=== PATIENT | female | born 1960 | race Caucasian/White ===

== ENCOUNTER 2018-01-21 10:45 | Outpatient (CLI) | payer MEDICARE, BC | END 2018-01-21 10:46 | disposition home or self-care (01) | LOC: BICMAMMO 10:45 | PROVIDERS: ATTEND Family Medicine | DX: Z12.31 Encounter for screening mammogram for malignant neoplasm of breast (principal) | CPT/HCPCS: 77063; 77067 ==

== ENCOUNTER 2018-06-06 09:27 | Outpatient (CLI) | payer MEDICARE, BC ==
--- NOTE | 2018-06-06 10:50 | RAD ---
FRONTAL AND LATERAL IMAGING OF THE LUMBAR SPINE: Date: 06-06-18 Comparison: None. History: Back pain, dorsalgia. FINDINGS: There is extensive atherosclerotic calcification of the abdominal aorta. Age indeterminate anterior wedge compression fracture noted involving the T11 vertebral body with fay roximately 25% loss of vertebral body height anteriorly. Lumbar vertebral body height and alignment a ppears normal. There is facet hypertrophy at L4-5 and L5-S1. IMPRESSION: 1. Age indeterminate mild anterior wedge compression fracture at T11. 2. Lower lumbar spine degenerative change. 3. Extensive atherosclerotic calcification of the abdominal aorta. POS: OFF
--- NOTE | 2018-06-06 11:17 | RAD ---
LEFT ANKLE THREE VIEWS: History: Left ankle pain following an injury from a fall. FINDINGS: Arterial vascular calcifications are noted in the lower leg. Soft tissue swelling is noted of the ank le and over the dorsal aspect of the foot, somewhat greater laterally. There is increased density in the region of the ankle joint which could represent some joint effusion. IMPRESSION: Soft tissue swelling with possible associated joint effusion but without acute fracture or dislocatio n. If patient's symptoms worsen or do not resolve over time, consider non-emergent follow up MRI for fur ther assessment. Prominent vascular calcifications. Mild degenerative changes of the ankle joint. POS: JEAN PIERRE
--- NOTE | 2018-06-06 11:33 | RAD ---
THREE VIEWS THORACIC SPINE: Date: 06-06-18 History: Back pain, trauma. FINDINGS: There is atherosclerotic calcification of the aortic arch. There is mild prominence of the right paratracheal shadow and right hilar shadow. There is also incre ased density within the left perihilar and infrahilar region. Findings may be on the basis of adenopa thy. Multilevel midthoracic spine degenerative changes are noted with disc space narrowing and anterior os teophyte formation. Age indeterminate mild anterior wedge compression fracture of T11 noted with 25% loss of vertebral body height anteriorly. IMPRESSION: 1. Age indeterminate, probably acute anterior wedge compression fracture of T11 with 25% loss of vert ebral body height anteriorly. 2. Abnormal soft tissue density in the mediastinum for which CT examination is advised. 3. Madison Morrison, ordering physician's electrician's assistant, made aware at 10:15 a.m. 06-06-18. Code CR. POS: OFF
== END 2018-06-06 09:28 | disposition home or self-care (01) ==
LOC: BICRAD 09:27
PROVIDERS: ATTEND Physician Assistant Medical
DX: M25.572 Pain in left ankle and joints of left foot (principal); M54.9 Dorsalgia, unspecified; S22.080A Wedge compression fracture of T11-T12 vertebra, initial encounter for closed fracture; M47.816 Spondylosis without myelopathy or radiculopathy, lumbar region; M79.89 Other specified soft tissue disorders; M25.472 Effusion, left ankle; M19.072 Primary osteoarthritis, left ankle and foot; I70.0 Atherosclerosis of aorta
CPT/HCPCS: 72072; 72100

== ENCOUNTER 2018-06-10 14:38 | Outpatient (CLI) | payer MEDICARE, BC ==
--- NOTE | 2018-06-10 16:00 | CT ---
CT CHEST WITHOUT CONTRAST 06/10/18 PROVIDED CLINICAL HISTORY: Abnormal thoracic spine radiograph. FINDINGS: Vascular calcifications including coronary calcium demonstrated. The heart, pericardium and great ve ssels are suboptimally evaluated in the absence of IV contrast but demonstrate an unremarkable unenha nced CT appearance. There is no evidence for thoracic lymph node enlargement. The lungs are free of significant opacity. Pleural parenchymal scarring is seen at the right lung bas e. The airway appears patent and of normal caliber. The visualized portions of the upper abdomen demonstrate fatty infiltration of the liver. The osseous structures demonstrate no concerning lytic or blastic lesions. Superior end plate compression deform ity involving T11 is demonstrated. Please see concurrently dictated CT thoracic spine for further de tails. IMPRESSION: 1. No evidence for an acute process. No CT correlate is demonstrated for the findings described on prior radiographs, presumably artifactual on that study. 2. Vascular calcification including coronary calcium. 3. Fatty infiltration of the liver. 4. Superior end plate compression deformity involving T11. Please see concurrently dictated CT t horacic spine for further details. POS: OFF
--- NOTE | 2018-06-10 16:16 | CT ---
THORACIC SPINE CT NONCONTRAST: Date: 06/10/18 CLINICAL HISTORY: Dorsalgia, backache, history of pain. Compression fracture. FINDINGS: There is a mild anterior wedge compression fracture of T11. Minimal inferior end plate irregularity o f T10 with minimal height loss is present. There is multilevel end plate degenerative change, end twan te irregularity, and Schmorl's node formation throughout the visualized thoracic spine, as well as th e incidentally imaged upper lumbar spine. No significant subluxation is demonstrated. There is a mini mal degree of retropulsion of bone at the T10-11 level related to the above described compression def ormities with moderate osseous compromise of the central canal at this level. Osteophyte formation at T11-12 also results in moderate osseous narrowing of the central canal. There is incidental note of diffuse vascular disease. There is incidental note of a markedly diminutive left kidney. IMPRESSION: Mild anterior wedge compression of T11. Minimal inferior end plate irregularity and associated height loss of T10. Slight retropulsion of bone is present with moderate osseous narrowing of the neural fo ramina. Additional details are described above. POS: JEAN PIERRE
== END 2018-06-10 14:39 | disposition home or self-care (01) ==
LOC: BICCT 14:38
PROVIDERS: ATTEND Physician Assistant Medical
DX: M48.54XA Collapsed vertebra, not elsewhere classified, thoracic region, initial encounter for fracture (principal); R93.89 Abnormal findings on diagnostic imaging of other specified body structures; M47.814 Spondylosis without myelopathy or radiculopathy, thoracic region; M48.04 Spinal stenosis, thoracic region; M25.78 Osteophyte, vertebrae; M89.9 Disorder of bone, unspecified
CPT/HCPCS: 71250; 72128

== ENCOUNTER 2018-07-18 10:41 | Outpatient (CLI) | payer MEDICARE, BC ==
--- NOTE | 2018-07-18 15:54 | MRI ---
MRI THORACIC SPINE WITHOUT IV CONTRAST: INDICATION: History of T11 compression abnormality. COMPARISON: Prior CT of the thorax dated 06/10/2018. TECHNIQUE: Multiplanar, multisequence MR images were obtained of the thoracic spine without contrast. FINDINGS: A T11 and T12 subacute wedge compression abnormality demonstrate no appreciable worsening in loss of height. No new fracture is evident. The spinal cord demonstrates a normal signal intensity and lani iber. There is a small central disk protrusion at T6-T7 without appreciable central canal or neural foramin al narrowing. There is a left paracentral disk protrusion at T8-T9 without appreciable central canal or neural fora debo narrowing. At T10-T11, there is a broad-based disk-osteophyte complex causing mild central canal narrowing and m ild bilateral neural foraminal narrowing. At T11-T12, there is a broad-based disk-osteophyte complex inducing mild central canal narrowing with mild bilateral neural foraminal narrowing. IMPRESSION: 1. Multilevel spondylosis of the thoracic spine. 2. Subacute compression abnormalities of T11 and T12 without further loss of height. 3. Broad-based disk-osteophyte complex at T10-T11 and T11-T12 causing mild central canal narrowing a nd mild bilateral neural foraminal narrowing. 4. Small disk protrusions at T6-T7 and T8-T9 without appreciable central canal or neural foraminal n arrowing. POS: JEAN PIERRE
== END 2018-07-18 10:42 | disposition home or self-care (01) ==
LOC: BICMRI 10:41
PROVIDERS: ATTEND Physical Medicine & Rehabilitation
DX: S22.089D Unspecified fracture of T11-T12 vertebra, subsequent encounter for fracture with routine healing (principal); M47.814 Spondylosis without myelopathy or radiculopathy, thoracic region; M48.04 Spinal stenosis, thoracic region; M51.24 Other intervertebral disc displacement, thoracic region
CPT/HCPCS: 72146

== ENCOUNTER 2018-12-15 10:21 | Emergency (ER) | payer MEDICARE, BC ==
[2018-12-15 10:54] LABS: #Basophils 0.1 thou/uL (0.0-0.2); #Eosinphils 0.2 thou/uL (0.0-0.7); #Lymphocytes 3.8 thou/uL (1.20-3.40); #Monocytes 1.2 thou/uL (0.11-0.59); #Neutrophils 7.6 thou/uL (1.40-6.50); %Basophils 1.1 % (0.0-1.0); %Eosinophils 1.4 % (0.0-10.0); %Lymphocytes 29.3 % (21.0-51.0); %Neutrophils 59.3 % (42.0-75.0); Hemoglobin 14.3 g/dL (12.0-16.0); Mean Corpuscular HGB CONC 34.6 g/dL (32.0-36.0); Mean Corpuscular Hemoglobin 30.3 pg (27.0-31.0); Mean Corpuscular Volume 87.3 fL (78.0-98.0); Mean Platelet Volume 7.1 fL (7.4-10.4); Platelet Count 376 thou/uL (130-400); RBC Distribution Width 11.6 % (11.5-14.5); Red Blood Cell (RBC) Count 4.72 mill/uL (4.20-5.40); White Blood Cell (WBC) Count 12.8 thou/uL (4.8-10.8)
[2018-12-15 11:16] LABS: ALT (SGPT) 28 U/L (8-55); AST (SGOT) 18 U/L (5-34); Albumin 4.6 g/dL (3.5-5.0); Alkaline Phosphatase 78 U/L (40-150); Anion Gap 14 mmol/L (10-20); BUN (Urea Nitrogen) 31 mg/dL (9.8-20.1); Bilirubin, Total 0.5 mg/dL (0.2-1.2); Calc. Creatinine Clearance 0 mL/min (70-130); Calcium 11.3 mg/dL (7.8-10.44); Carbon Dioxide 31 mmol/L (22-29); Chloride 94 mmol/L (98-107); Estimated GFR-MDRD 24; Globulin 3.3 g/dL (2.4-3.5); Glucose 289 mg/dL (70-105); Potassium 4.5 mmol/L (3.5-5.1); Protein, Total 7.9 g/dL (6.0-8.3); Sodium 134 mmol/L (136-145)
[2018-12-15] MEDS ORDERED: Ondansetron PF 4 MG/2 ML Vial ONE (11:52)
[2018-12-15 13:57] LABS: Bilirubin Negative (Negative); Blood, Urine Negative (Negative); Clarity Clear (Clear); Glucose, Urine (Dipstick) Normal (Negative); Leukocyte Negative Leu/uL (Negative); Nitrite Negative (Negative); Protein, Urine (Dipstick) 20 mg/dL (Neg-Trace); Urobilinogen Normal mg/dL (Less than 2)
[2018-12-15 14:35] LABS: Anion Gap 16 mmol/L (10-20); BUN (Urea Nitrogen) 28 mg/dL (9.8-20.1); Calc. Creatinine Clearance 0 mL/min (70-130); Calcium 10.3 mg/dL (7.8-10.44); Carbon Dioxide 26 mmol/L (22-29); Chloride 100 mmol/L (98-107); Estimated GFR-MDRD 28; Glucose 207 mg/dL (70-105); Potassium 4.9 mmol/L (3.5-5.1); Sodium 137 mmol/L (136-145)
[2018-12-15] MEDS ORDERED: Lisinopril 10 MG TAB ONE (14:39)
[2018-12-15] MEDS ORDERED: Acetaminophen 500 MG TAB ONE (14:48)
== END 2018-12-15 15:41 | disposition home or self-care (01) ==
LOC: ERS 10:21
DX: E11.22 Type 2 diabetes mellitus with diabetic chronic kidney disease (principal); I12.9 Hypertensive chronic kidney disease with stage 1 through stage 4 chronic kidney disease, or unspecified chronic kidney disease; N18.9 Chronic kidney disease, unspecified; E86.0 Dehydration; E78.5 Hyperlipidemia, unspecified; F32.9 Major depressive disorder, single episode, unspecified; Z87.891 Personal history of nicotine dependence; Z79.899 Other long term (current) drug therapy
CPT/HCPCS: 36415; 80053; 81003; 82010; 85025; 96361; 96374; J2405

== ENCOUNTER 2019-02-21 12:51 | Outpatient (CLI) | payer MEDICARE, BC ==
--- NOTE | 2019-02-21 14:38 | MMO ---
Bilateral MAMMO Bilat Screen [facility]. CLINICAL HISTORY: Patient is 59 years old and is seen for screening. The patient has no family history of breast cancer. The patient has no personal history of cancer. VIEWS: The views performed were: bilateral craniocaudal with tomosynthesis and bilateral mediolateral oblique with tomosynthesis. FILMS COMPARED: The present examination has been compared to prior imaging studies performed at [facility] on 01/14/2015, 01/16/2016, 01/18/2017 and 01/21/2018. This study has been interpreted with the assistance of computer-aided detection. MAMMOGRAM FINDINGS: There are scattered fibroglandular densities. There are benign appearing and vascular calcifications seen in both breasts. There are no suspicious masses, suspicious calcifications, or new areas of architectural distortion. IMPRESSION: THERE IS NO MAMMOGRAPHIC EVIDENCE OF MALIGNANCY. A ROUTINE FOLLOW-UP MAMMOGRAM IN 1 YEAR IS RECOMMENDED. THE RESULTS OF THIS EXAM WERE SENT TO THE PATIENT. ACR BI-RADS Category 2 - Benign finding MAMMOGRAPHY NOTE: 1. A negative mammogram report should not delay a biopsy if a dominant of clinically suspicious mass is present. 2. Approximately 10% to 15% of breast cancers are not detected by mammography. 3. Adenosis and dense breasts may obscure an underlying neoplasm. Reported by: JONI KIM MD Electonically Signed: [id number]
== END 2019-02-21 12:52 | disposition home or self-care (01) ==
LOC: BICMAMMO 12:51
PROVIDERS: ATTEND Family Medicine
DX: Z12.31 Encounter for screening mammogram for malignant neoplasm of breast (principal)
CPT/HCPCS: 77063; 77067

== ENCOUNTER 2020-03-11 13:35 | Outpatient (CLI) | payer MEDICARE, BC ==
--- NOTE | 2020-03-11 14:03 | MMO ---
Bilateral MAMMO Bilat Screen [facility]. CLINICAL HISTORY: Patient is 60 years old and is seen for screening. The patient has no family history of breast cancer. The patient has no personal history of cancer. VIEWS: The views performed were: bilateral craniocaudal with tomosynthesis and bilateral mediolateral oblique with tomosynthesis. FILMS COMPARED: The present examination has been compared to prior imaging studies performed at [facility] on 01/16/2016, 01/18/2017, 01/21/2018 and 02/21/2019. This study has been interpreted with the assistance of computer-aided detection. MAMMOGRAM FINDINGS: There are scattered fibroglandular densities. There are stable benign appearing calcifications seen in both breasts. There are also vascular calcifications. There are no suspicious masses, suspicious calcifications, or new areas of architectural distortion. IMPRESSION: THERE IS NO MAMMOGRAPHIC EVIDENCE OF MALIGNANCY. A ROUTINE FOLLOW-UP MAMMOGRAM IN 1 YEAR IS RECOMMENDED. THE RESULTS OF THIS EXAM WERE SENT TO THE PATIENT. ACR BI-RADS Category 2 - Benign finding MAMMOGRAPHY NOTE: 1. A negative mammogram report should not delay a biopsy if a dominant of clinically suspicious mass is present. 2. Approximately 10% to 15% of breast cancers are not detected by mammography. 3. Adenosis and dense breasts may obscure an underlying neoplasm. Reported by: DAVID CISNEROS MD Electonically Signed: [id number]
== END 2020-03-11 13:36 | disposition home or self-care (01) ==
LOC: BICMAMMO 13:35
PROVIDERS: ATTEND Family Medicine
DX: Z12.31 Encounter for screening mammogram for malignant neoplasm of breast (principal)
CPT/HCPCS: 77063; 77067

== ENCOUNTER 2020-12-13 09:38 | Outpatient (CLI) | payer MEDICARE, BC | END 2020-12-13 09:39 | disposition home or self-care (01) | LOC: BICMRI 09:38 | PROVIDERS: ATTEND Nurse Practitioner Acute Care | DX: M54.41 Lumbago with sciatica, right side (principal); M48.061 Spinal stenosis, lumbar region without neurogenic claudication; M43.15 Spondylolisthesis, thoracolumbar region | CPT/HCPCS: 72148 ==

== ENCOUNTER 2021-03-25 11:01 | Outpatient (CLI) | payer MEDICARE, BC | END 2021-03-25 11:02 | disposition home or self-care (01) | LOC: BICMAMMO 11:01 | PROVIDERS: ATTEND Family Medicine | DX: Z12.31 Encounter for screening mammogram for malignant neoplasm of breast (principal) | CPT/HCPCS: 77063; 77067 ==

== ENCOUNTER 2021-04-01 14:03 | Outpatient (CLI) | payer MEDICARE, BC | END 2021-04-01 14:04 | disposition home or self-care (01) | LOC: SCSRAD 14:03 | PROVIDERS: ATTEND Psychiatry & Neurology Neurology | DX: G63 Polyneuropathy in diseases classified elsewhere (principal) ==

== ENCOUNTER 2021-04-10 09:18 | Outpatient (CLI) | payer MEDICARE, BC | END 2021-04-10 09:19 | disposition home or self-care (01) | LOC: BICMRI 09:18 | PROVIDERS: ATTEND Anesthesiology Pain Medicine | DX: M76.9 Unspecified enthesopathy, lower limb, excluding foot (principal); M25.451 Effusion, right hip; S73.101A Unspecified sprain of right hip, initial encounter ==

== ENCOUNTER 2021-11-25 14:21 | Outpatient (CLI) | payer MEDICARE, BC | END 2021-11-25 14:22 | disposition home or self-care (01) | LOC: BICRAD 14:21 | PROVIDERS: ATTEND Anesthesiology | DX: M25.562 Pain in left knee (principal); M25.561 Pain in right knee; M17.11 Unilateral primary osteoarthritis, right knee; M25.862 Other specified joint disorders, left knee ==

== ENCOUNTER 2022-04-24 09:46 | Outpatient (CLI) | payer MEDICARE, BC | END 2022-04-24 09:47 | disposition home or self-care (01) | LOC: BICMAMMO 09:46 | PROVIDERS: ATTEND Family Medicine | DX: Z12.31 Encounter for screening mammogram for malignant neoplasm of breast (principal) | CPT/HCPCS: 77063; 77067 ==

== ENCOUNTER 2023-07-12 12:40 | Outpatient (CLI) | payer MEDICARE, BC | END 2023-07-12 12:41 | disposition home or self-care (01) | LOC: BICMAMMO 12:40 | PROVIDERS: ATTEND Family Medicine | DX: Z12.31 Encounter for screening mammogram for malignant neoplasm of breast (principal) | CPT/HCPCS: 77063; 77067 ==

== ENCOUNTER 2024-07-16 08:18 | Outpatient (CLI) | payer MEDICARE, BC | END 2024-07-16 08:19 | disposition home or self-care (01) | LOC: RAD 08:18 | PROVIDERS: ATTEND Student in an Organized Health Care Education/Training Program | DX: R11.10 Vomiting, unspecified (principal); I70.0 Atherosclerosis of aorta | CPT/HCPCS: 74018 ==

== ENCOUNTER 2024-12-27 14:48 | Inpatient (IN) | payer MEDICARE, BC ==
[2024-12-27] MEDS ORDERED: Furosemide 40 MG (4 mL) VIAL ONE ×2 (15:37→17:21)
[2024-12-27 15:40] LABS: #Basophils 0.07 10x3/uL (0.0-0.2); #Eosinophils 0.20 10x3/uL (0.0-0.7); #Monocytes 0.70 10x3/uL (0.11-0.59); #Neutrophils 6.45 10x3/uL (1.40-6.50); %Basophils 0.8 % (0.0-1.0); %Eosinophils 2.2 % (0.0-10.0); %Lymphocytes 19.5 % (21.0-51.0); %Monocytes 7.6 % (0.0-10.0); %Neutrophils 69.6 % (42.0-75.0); Hematocrit 22.6 % (36.0-47.0); Hemoglobin 7.3 g/dL (12.0-16.0); Mean Corpuscular Hemoglobin 29.6 pg (27.0-31.0); Mean Corpuscular Volume 91.5 fL (78.0-98.0); Platelet Count 279 10x3/uL (130-400); Red Blood Cell (RBC) Count 2.47 mill/uL (4.20-5.40); White Blood Cell (WBC) Count 9.25 10x3/uL (4.8-10.8)
[2024-12-27 16:06] LABS: ALT (SGPT) 7 U/L (Less than 34); AST (SGOT) 14 U/L (11-34); Albumin 2.8 g/dL (3.1-4.5); Alkaline Phosphatase 73 U/L (40-110); Anion Gap 14 mmol/L (10-20); BUN (Urea Nitrogen) 38 mg/dL (9.8-20.1); Bilirubin, Total 0.3 mg/dL (0.3-1.2); Calc. Creatinine Clearance 0 mL/min (70-130); Calcium 8.0 mg/dL (7.8-10.44); Carbon Dioxide 23 mmol/L (23-31); Chloride 106 mmol/L (98-107); Globulin 3.4 g/dL (2.4-3.5); Glucose 181 mg/dL (80-115); Magnesium 1.6 mg/dL (1.6-2.6); Potassium 5.6 mmol/L (3.5-5.1); Sodium 137 mmol/L (136-145)
[2024-12-27 16:10] LABS: Troponin I Less than 0.010 ng/mL (< 0.028)
[2024-12-27] MEDS ORDERED: Calcium Chloride 1 GM/10 ML Abboject SYRINGE ONE (16:26)
[2024-12-27] MEDS ORDERED: Dextrose 50% Abboject 50 ML SYRINGE ONE (16:28)
[2024-12-27] MEDS ORDERED: CALCIUM GLUC 1 GM/NS 50 ML IV Bag ONE (16:41)
[2024-12-27] MEDS ORDERED: Senokot S 8.6-50 MG TAB PO PRN (17:31)
[2024-12-27] MEDS ORDERED: Acetaminophen 325 MG TAB PO PRN (17:31)
[2024-12-27] MEDS ORDERED: Dextrose 50% Abboject 50 ML SYRINGE SLOW IVP PRN (17:31)
[2024-12-27] MEDS ORDERED: Ondansetron PF 4 MG/2 ML Vial IVP PRN (17:31)
[2024-12-27] MEDS ORDERED: Glucagon 1 MG/ML KIT IM PRN (17:31)
[2024-12-27] MEDS ORDERED: Melatonin 3 MG TAB PO PRN (17:31)
[2024-12-27 19:41] VITALS: BMI 25.3
[2024-12-27 20:02] LABS: Bacteria/HPF None Seen HPF (None Seen); CAUTI Indications for Culture Dysuria,urgency,freq; Glucose, Urine (Dipstick) Normal (Negative); Leukocyte 250 Leu/uL (Negative); Protein, Urine (Dipstick) 50 mg/dL (Neg-Trace); RBC/HPF 0-3 HPF (0-3); Specific Gravity, Urine 1.007 (1.002-1.036); WBC/HPF Greater than 50 HPF (0-3)
[2024-12-27 20:10] LABS: Urine Culture Reflex Yes Yes
[2024-12-27] MEDS: NIFEdipine XL 60 MG ER.TAB PO SCH (21:06)
[2024-12-27] MEDS: Heparin 5,000 UNITS/ML VIAL SC SCH (21:06)
[2024-12-27] MEDS: EPOETIN ALFA-EPBX (ESRD) 10,000 UNITS/ML VIAL SC SCH (21:07)
[2024-12-27 22:43] LABS: Anion Gap 17 mmol/L (10-20); BUN (Urea Nitrogen) 35 mg/dL (9.8-20.1); Calc. Creatinine Clearance 11 mL/min (70-130); Calcium 8.1 mg/dL (7.8-10.44); Carbon Dioxide 18 mmol/L (23-31); Chloride 104 mmol/L (98-107); Glucose 320 mg/dL (80-115); Potassium 5.0 mmol/L (3.5-5.1); Sodium 134 mmol/L (136-145); Troponin I Less than 0.010 ng/mL (< 0.028)
[2024-12-27 23:58] LABS: HBSAB Concentration Less than 8.00 mIU/mL; Hep B Core Total Ab NONREACTIVE (NonReactive); Hep B Core Total Index 0.06 S/CO (0-0.79); Hep B Surf Ag NONREACTIVE S/CO (NonReactive); Hep C IgG Ab NONREACTIVE S/CO (NonReactive); Hep C Index 0.08 S/CO (0-0.79)
[2024-12-28 05:13] LABS: #Basophils 0.05 10x3/uL (0.0-0.2); #Eosinophils 0.27 10x3/uL (0.0-0.7); #Monocytes 0.85 10x3/uL (0.11-0.59); #Neutrophils 5.19 10x3/uL (1.40-6.50); %Basophils 0.6 % (0.0-1.0); %Eosinophils 3.1 % (0.0-10.0); %Lymphocytes 27.3 % (21.0-51.0); %Monocytes 9.6 % (0.0-10.0); %Neutrophils 58.8 % (42.0-75.0); Hematocrit 25.9 % (36.0-47.0); Hemoglobin 8.4 g/dL (12.0-16.0); Mean Corpuscular Hemoglobin 29.4 pg (27.0-31.0); Mean Corpuscular Volume 90.6 fL (78.0-98.0); Platelet Count 339 10x3/uL (130-400); Red Blood Cell (RBC) Count 2.86 mill/uL (4.20-5.40); White Blood Cell (WBC) Count 8.82 10x3/uL (4.8-10.8)
[2024-12-28 05:24] LABS: Anion Gap 17 mmol/L (10-20); BUN (Urea Nitrogen) 36 mg/dL (9.8-20.1); Calc. Creatinine Clearance 10 mL/min (70-130); Calcium 8.1 mg/dL (7.8-10.44); Carbon Dioxide 21 mmol/L (23-31); Chloride 104 mmol/L (98-107); Glucose 189 mg/dL (80-115); Potassium 4.7 mmol/L (3.5-5.1); Sodium 137 mmol/L (136-145)
[2024-12-28] MEDS: Furosemide 40 MG (4 mL) VIAL SLOW IVP SCH (06:13)
[2024-12-29 04:54] LABS: #Basophils 0.08 10x3/uL (0.0-0.2); #Eosinophils 0.21 10x3/uL (0.0-0.7); #Monocytes 0.69 10x3/uL (0.11-0.59); #Neutrophils 4.50 10x3/uL (1.40-6.50); %Basophils 0.9 % (0.0-1.0); %Eosinophils 2.5 % (0.0-10.0); %Lymphocytes 35.0 % (21.0-51.0); %Monocytes 8.1 % (0.0-10.0); %Neutrophils 52.9 % (42.0-75.0); Hematocrit 26.4 % (36.0-47.0); Hemoglobin 8.4 g/dL (12.0-16.0); Mean Corpuscular Hemoglobin 28.8 pg (27.0-31.0); Mean Corpuscular Volume 90.4 fL (78.0-98.0); Platelet Count 314 10x3/uL (130-400); Red Blood Cell (RBC) Count 2.92 mill/uL (4.20-5.40); White Blood Cell (WBC) Count 8.51 10x3/uL (4.8-10.8)
[2024-12-29 05:18] LABS: Anion Gap 15 mmol/L (10-20); BUN (Urea Nitrogen) 35 mg/dL (9.8-20.1); Calc. Creatinine Clearance 11 mL/min (70-130); Calcium 7.9 mg/dL (7.8-10.44); Carbon Dioxide 23 mmol/L (23-31); Chloride 104 mmol/L (98-107); Glucose 200 mg/dL (80-115); Potassium 3.8 mmol/L (3.5-5.1); Sodium 138 mmol/L (136-145)
[2024-12-29] MEDS ORDERED: Furosemide 40 MG (4 mL) VIAL SLOW IVP SCH (10:03)
[2024-12-29] MEDS: cefTRIAXone\\ROCEPHIN 1 GM in Sodium Chloride 0.9% 100 ML IVPB SCH (13:59)
[2024-12-29 15:46] VITALS: BMI 25.3
[2024-12-30 04:32] LABS: #Basophils 0.10 10x3/uL (0.0-0.2); #Eosinophils 0.25 10x3/uL (0.0-0.7); #Monocytes 0.62 10x3/uL (0.11-0.59); #Neutrophils 4.61 10x3/uL (1.40-6.50); %Basophils 1.1 % (0.0-1.0); %Eosinophils 2.8 % (0.0-10.0); %Lymphocytes 36.7 % (21.0-51.0); %Monocytes 7.0 % (0.0-10.0); %Neutrophils 51.8 % (42.0-75.0); Hematocrit 29.0 % (36.0-47.0); Hemoglobin 9.3 g/dL (12.0-16.0); Mean Corpuscular Hemoglobin 29.5 pg (27.0-31.0); Mean Corpuscular Volume 92.1 fL (78.0-98.0); Platelet Count 347 10x3/uL (130-400); Red Blood Cell (RBC) Count 3.15 mill/uL (4.20-5.40); White Blood Cell (WBC) Count 8.89 10x3/uL (4.8-10.8)
[2024-12-30 04:59] LABS: Anion Gap 15 mmol/L (10-20); BUN (Urea Nitrogen) 31 mg/dL (9.8-20.1); Calc. Creatinine Clearance 10 mL/min (70-130); Calcium 7.7 mg/dL (7.8-10.44); Carbon Dioxide 23 mmol/L (23-31); Chloride 104 mmol/L (98-107); Glucose 228 mg/dL (80-115); Potassium 3.7 mmol/L (3.5-5.1); Sodium 138 mmol/L (136-145)
[2024-12-30] MEDS: Furosemide 40 MG TAB PO SCH (07:28)
[2024-12-30 12:12] VITALS: BP 106/56; TEMP 98.1
== END 2024-12-30 15:01 | disposition home or self-care (01) | DRG 640 ==
LOC: ERS 14:48 → ERHOLD 16:24 → OBS 18:32 → OBSVTOIN 12-28 16:02
PROVIDERS: ADMIT Family Medicine; ATTEND Family Medicine
PROC: 30233N1 Transfusion of Nonautologous Red Blood Cells into Peripheral Vein, Percutaneous Approach (ICD-10-PCS; principal; 2024-12-27)
PROC: 3E03329 Introduction of Other Anti-infective into Peripheral Vein, Percutaneous Approach (ICD-10-PCS; 2024-12-27)
DX: E87.70 Fluid overload, unspecified (principal); I50.31 Acute diastolic (congestive) heart failure; J96.01 Acute respiratory failure with hypoxia; N18.6 End stage renal disease; I13.2 Hypertensive heart and chronic kidney disease with heart failure and with stage 5 chronic kidney disease, or end stage renal disease; Z94.0 Kidney transplant status; E87.6 Hypokalemia; E78.5 Hyperlipidemia, unspecified; E11.22 Type 2 diabetes mellitus with diabetic chronic kidney disease; Z88.8 Allergy status to other drugs, medicaments and biological substances; Z88.5 Allergy status to narcotic agent; Z91.018 Allergy to other foods; Z90.710 Acquired absence of both cervix and uterus; Z98.890 Other specified postprocedural states; Z87.891 Personal history of nicotine dependence; D63.1 Anemia in chronic kidney disease; Z79.82 Long term (current) use of aspirin; Z79.4 Long term (current) use of insulin; Z79.899 Other long term (current) drug therapy
CPT/HCPCS: 36415; 36416; 36430; 71045; 80048; 80053; 80197; 81001; 82274; 83735; 83970; 84100; 84484; 85025; 86704; 86706; 86803; 86850; 86900; 86901; 87077; 87086; 87186; 87340; 93005; 93306; 94640; 94760; 96372; 96374; 96375; 96376; G0378; J0613; J0696; J1644; J1815; J1940; J7507; J7512; J7620; J7999; P9016; Q5105